=== PATIENT | male | born 1965 | race Caucasian/White ===

== ENCOUNTER 2025-04-08 08:31 | Outpatient (CLI) | payer OTHER, SELFPAY | END 2025-04-08 08:32 | disposition home or self-care (01) | PROVIDERS: PCP Family Medicine; Visit Provider Family Medicine | DX: E11.9 Type 2 diabetes mellitus without complications (principal); E78.5 Hyperlipidemia, unspecified; Z12.5 Encounter for screening for malignant neoplasm of prostate | CPT/HCPCS: 80048; 80061; G0103 ==